=== PATIENT | male | born 1950 | race Caucasian/White ===

== ENCOUNTER 2019-02-13 21:37 | Inpatient (IN) | payer OTHER, MEDICARE ==
[~2019-02-13] VITALS: Ht 175.3 cm; Wt 98.0 kg
[~2019-02-13 21:37] MED LIST: ALBU90OI INH; ALBU90OI6 INH; AZIT250 PO; Baclofen20 MG PO; CETI5 PO; DOC250 PO; HYDACE5 PO; Hair, Skin & N1 EACH PO; MELO7.5 PO; PRAZ1 PO; PRED20 PO; Prednisone20 MG PO; VENL150ER PO; Zithromax250 MG PO
[2019-02-13 21:57] LABS: BASOPHILS PERCENT AUTO 2 % (0-2); EOSINOPHILS ABSOLUTE AUTO 1.08 K/mm3 (0.00-0.68); EOSINOPHILS PERCENT AUTO 8 % (0-6); Hematocrit 50.8 % (37.0-53.0); Hemoglobin 17.4 g/dL (13.5-17.5); IMMATURE GRAN ABSOLUTE AUTO 0.04 K/mm3 (0.00-0.10); IMMATURE GRAN PERCENT AUTO 0 % (0-1); LYMPHOCYTES ABSOLUTE AUTO 2.52 K/mm3 (0.84-5.20); LYMPHOCYTES PERCENT AUTO 19 % (21-46); MONOCYTES ABSOLUTE AUTO 1.51 K/mm3 (0.16-1.47); MONOCYTES PERCENT AUTO 11 % (4-13); Mean Corpuscular HGB 30.2 pg (26.0-34.0); Mean Corpuscular HGB Conc 34.3 g/dL (31.5-36.5); Mean Corpuscular Volume 88 fL (80-100); Mean Platelet Volume 9.3 fL (9.1-12.4); NEUTROPHILS ABSOLUTE AUTO 8.03 K/mm3 (1.96-9.15); NEUTROPHILS PERCENT AUTO 60 % (41-73); Platelet Count 301 K/mm3 (150-400); RDW Coefficient Variation 12.7 % (11.7-14.2); RDW Standard Deviation 41.5 fL (35.1-46.3); Red Blood Cell Count 5.77 M/mm3 (4.30-5.90); White Blood Cell Count 13.38 K/mm3 (4.00-11.30)
[2019-02-13 22:04] LABS: PCO2 Arterial 36.3 mmHg (35-45); PO2 Arterial 58.9 mmHg (80-100); pH Blood Arterial 7.45 (7.35-7.45)
[2019-02-13 22:19] LABS: Alanine Aminotransfer (ALT/SGP 49 U/L (12-78); Albumin, Blood 4.2 g/dL (3.4-5.0); Albumin/Globulin Ratio 1.2 (0.8-1.8); Alk Phos 138 U/L (50-136); Anion Gap 10 mmol/L (6-16); Aspartate Aminotrans (AST/SGOT 27 U/L (12-37); Bilirubin, Total 0.6 mg/dL (0.1-1.0); Blood Urea Nitrogen 20 mg/dL (8-24); Bun/Creatinine Ratio 19.6 (12.0-20.0); CO2, Blood 24 mmol/L (21-32); Chloride, Blood 103 mmol/L (98-108); Creatinine, Blood 1.02 mg/dL (0.60-1.20); Globulin, Blood 3.6 g/dL (2.2-4.0); Glomerular Filtration Rate >60 (60-); Glucose, Blood 151 mg/dL (70-99); Potassium, Blood 3.6 mmol/L (3.5-5.5); Sodium, Blood 137 mmol/L (136-145); Total Protein, Blood 7.8 g/dL (6.4-8.2); Troponin I <0.015 ng/mL (0.000-0.040)
--- NOTE | 2019-02-14 01:04 | NUR ---
PCU ADMIT PT BROUGHT TO PCU RM 13 FROM ER BY ABIMAEL @ APPROX 0020. PT A&O X4, ABLE TO AMBULATE FROM [facility] TO PCU BED INDEPENDENTLY. PT TRANSFERRED FROM ER TO PCU ON 6L NC, PLACED ON BIPAP 14/7, 30% BY RT UPON ARRIVAL TO UNIT. LUNG SOUNDS W/ WHEEZE T/O. SPO2 > 90%. PT REPORTS BEING DEAF IN L EAR. MONITOR SHOWS ST, HR 100-120's. WILL CONTINUE TO MONITOR AND PROVIDE CARE.
[2019-02-14 03:29] LABS: Hematocrit 49.8 % (37.0-53.0); Hemoglobin 17.1 g/dL (13.5-17.5); Mean Corpuscular HGB Conc 34.3 g/dL (31.5-36.5); Mean Corpuscular Volume 87 fL (80-100); Mean Platelet Volume 8.9 fL (9.1-12.4); Platelet Count 295 K/mm3 (150-400); RDW Coefficient Variation 12.9 % (11.7-14.2); RDW Standard Deviation 41.1 fL (35.1-46.3); White Blood Cell Count 13.28 K/mm3 (4.00-11.30)
[2019-02-14 03:49] LABS: Alanine Aminotransfer (ALT/SGP 44 U/L (12-78); Albumin/Globulin Ratio 1.1 (0.8-1.8); Alk Phos 115 U/L (50-136); Anion Gap 8 mmol/L (6-16); Aspartate Aminotrans (AST/SGOT 24 U/L (12-37); Bilirubin, Total 0.4 mg/dL (0.1-1.0); Blood Urea Nitrogen 21 mg/dL (8-24); Bun/Creatinine Ratio 19.3 (12.0-20.0); CO2, Blood 26 mmol/L (21-32); Calcium, Blood 9.2 mg/dL (8.5-10.1); Chloride, Blood 102 mmol/L (98-108); Creatinine, Blood 1.09 mg/dL (0.60-1.20); Globulin, Blood 3.6 g/dL (2.2-4.0); Glomerular Filtration Rate >60 (60-); Glucose, Blood 201 mg/dL (70-99); Potassium, Blood 3.6 mmol/L (3.5-5.5); Sodium, Blood 136 mmol/L (136-145); Total Protein, Blood 7.6 g/dL (6.4-8.2)
--- NOTE | 2019-02-14 05:15 | NUR ---
SHIFT SUMMARY PT A&O X4. VSS. MONITOR SHOWS SR-ST, HR 90-120's. WHEEZE NOTED T/O LUNGS. SPO2 > 90% ON BIPAP 14/, 30%. NO EVENTS/CHANGES THIS SHIFT. PT SLEEPING MAJORITY OF TIME SINCE ARRIVAL TO UNIT. WILL CONTINUE TO MONITOR AND PROVIDE CARE.
--- NOTE | 2019-02-14 07:39 | NUR ---
pt laying in bed awake a/ox3, pleasant and cooperative with care, follows commands well, lungs are very wheezy t/o, resp even and unlabored, no cough noted, hrr, tele in place running st in low 100's, no edema noted, ppp+2, cap refill <3sec, vs stable, afebrile, iv site is clear and patent, btx4, abd flat soft nontender, voids without diff, skin c/w/d, maew, did get up to br, did fine initially but work of breathing was increased, placed back on bipap when he returned to bed, arturo, call light in reach.
[2019-02-14 09:03] LABS: Adenovirus Not Detected (NOT DETECT); Coronavirus 229E Not Detected (NOT DETECT); Coronavirus HKU1 Not Detected (NOT DETECT); Coronavirus NL63 Not Detected (NOT DETECT); Coronavirus OC43 Not Detected (NOT DETECT); Human Metapneumovirus Not Detected (NOT DETECT); Human Rhinovirus/Enterovirus Detected (NOT DETECT)
[2019-02-14 09:04] LABS: Bordetella pertussis Not Detected (NOT DETECT); Chlamydophila pneumoniae Not Detected (NOT DETECT); Influenza A Not Detected (NOT DETECT); Influenza A/2009-H1 Not Detected (NOT DETECT); Influenza A/H1 Not Detected (NOT DETECT); Influenza A/H3 Not Detected (NOT DETECT); Influenza B Not Detected (NOT DETECT); Mycoplasma pneumoniae Not Detected (NOT DETECT); Parainfluenza Virus 1 Not Detected (NOT DETECT); Parainfluenza Virus 2 Not Detected (NOT DETECT); Parainfluenza Virus 3 Not Detected (NOT DETECT); Parainfluenza Virus 4 Not Detected (NOT DETECT); Respiratory Syncytial Virus Not Detected (NOT DETECT)
--- NOTE | 2019-02-14 12:30 | NUR ---
ASSUMED CARE OF PATIENT AT 1200. A&O X 4, JOE. COARSE EXPIRATORY WHEEZES IN BILATERAL UPPER LOBES, VERY DIM WITH WHEEZES IN BILATERAL BASES. ALTERNATING BETWEEN BIPAP AND 2 L/MIN NC, ENGINE LATHE TENDER COUGH. O2 SATS 91-95%. CAN CHANGE POSITIONS INDEPENDENTLY IN BED. FAMILY AT BESIDE.
--- NOTE | 2019-02-14 15:42 | NUR ---
DR TREVIÑO AT BEDSIDE FOR CONSULATION. PT HAD JUST GOTTEN OUT OF SHOWER, WAS SEVERELY DYSPNEIC AND AUDIBLY WHEEZING. HAD BEEN WEARING OXYGEN AT 2 L/MIN NC WHILE SHOWERING, INCREASED TO 4 L/MIN NC AT CONCLUSION OF SHOWER. DR. TREVIÑO EXAMINED PT, ORDERED ABG FOR 1630 TODAY.
[2019-02-14 16:39] LABS: PCO2 Arterial 38.9 mmHg (35-45); PO2 Arterial 67.6 mmHg (80-100)
--- NOTE | 2019-02-14 18:17 | NUR ---
SHIFT SUMMARY: TOLERATING PO INTAKE. NO APRECABLE CHANGE IN BREATH SOUNDS OR OXYGENATION AT REST. PULMONARY CONSULT COMPLETED. STARTED ON LOW SS INSULIN AND CBG AC/HS. AND SON VISITED TODAY. IN GOOD SPIRITS. DENIES PAIN. USING URINAL INDEPENDENTLY.
--- NOTE | 2019-02-14 20:00 | NUR ---
CARE ASSUMPTION PT A&O X4. VSS. LUNG SOUNDS W/ WHEEZE T/O. SPO2 > 92% ON BIPAP 09/29, 25%. MONITOR SHOWS ST, HR 110's. WILL CONTINUE TO MONITOR AND PROVIDE CARE.
--- NOTE | 2019-02-14 22:04 | NUR ---
PT REQUEST TYLENOL PT REQUESTING TYLENOL FOR "BACK HURTING FROM LAYING IN BED AND NOT MOVING." PT W/ PREVIOUSLY LISTED ACETAMINOPHEN ALLERGY THAT PT CONFIRMED AT TIME OF ADMIT. PT DENYING ALLERGY AT THIS TIME, STATING "OH NO! I DON'T HAVE AN ALLERGY TO IT. TYLENOL IS THE ONLY THING THAT EVER HAS HELPED MY PAIN." CALL TO MD LIM BY PEARL HAND W/ NEW ORDER FOR PRN TYLENOL, SEE EMAR.
[2019-02-15 03:43] LABS: BASOPHILS ABSOLUTE AUTO 0.05 K/mm3 (0.00-0.23); BASOPHILS PERCENT AUTO 0 % (0-2); EOSINOPHILS ABSOLUTE AUTO 0.01 K/mm3 (0.00-0.68); EOSINOPHILS PERCENT AUTO 0 % (0-6); Hematocrit 46.6 % (37.0-53.0); Hemoglobin 15.8 g/dL (13.5-17.5); IMMATURE GRAN ABSOLUTE AUTO 0.29 K/mm3 (0.00-0.10); IMMATURE GRAN PERCENT AUTO 1 % (0-1); LYMPHOCYTES ABSOLUTE AUTO 1.16 K/mm3 (0.84-5.20); LYMPHOCYTES PERCENT AUTO 5 % (21-46); MONOCYTES ABSOLUTE AUTO 0.81 K/mm3 (0.16-1.47); MONOCYTES PERCENT AUTO 3 % (4-13); Mean Corpuscular HGB 29.8 pg (26.0-34.0); Mean Corpuscular HGB Conc 33.9 g/dL (31.5-36.5); Mean Corpuscular Volume 88 fL (80-100); Mean Platelet Volume 9.1 fL (9.1-12.4); NEUTROPHILS ABSOLUTE AUTO 23.02 K/mm3 (1.96-9.15); NEUTROPHILS PERCENT AUTO 91 % (41-73); Platelet Count 320 K/mm3 (150-400); RDW Coefficient Variation 12.9 % (11.7-14.2); RDW Standard Deviation 41.9 fL (35.1-46.3); Red Blood Cell Count 5.31 M/mm3 (4.30-5.90); White Blood Cell Count 25.34 K/mm3 (4.00-11.30)
[2019-02-15 04:08] LABS: Anion Gap 7 mmol/L (6-16); Blood Urea Nitrogen 21 mg/dL (8-24); Bun/Creatinine Ratio 22.7 (12.0-20.0); CO2, Blood 26 mmol/L (21-32); Calcium, Blood 8.9 mg/dL (8.5-10.1); Chloride, Blood 102 mmol/L (98-108); Creatinine, Blood 0.93 mg/dL (0.60-1.20); Glomerular Filtration Rate >60 (60-); Glucose, Blood 168 mg/dL (70-99); Phosphorus, Blood 2.6 mg/dL (2.5-4.9); Potassium, Blood 3.7 mmol/L (3.5-5.5); Sodium, Blood 135 mmol/L (136-145)
--- NOTE | 2019-02-15 06:10 | NUR ---
SOB PT AMBULATED TO BATHROOM AND BACK W/ RESPIRATIONS & SPO2 WNL. WITHIN 5 MINUTES AFTER SETTLING BACK IN BED AND WEARING BIPAP, PT PANICKING, STATING "I CAN'T GET AIR." SPO2 NOTED TO BE 94% ON BIPAP. RR RAPID AND LABORED. PT ENCOURAGED TO DEEP BREATHE. RT CALLED TO ROOM W/ BREATHING TX PROVIDED VIA BIPAP. PT TOLERATED WELL. WILL CONTINUE TO MONITOR AND PROVIDE CARE.
--- NOTE | 2019-02-15 06:23 | NUR ---
SHIFT SUMMARY PT A&O X4. VSS. LUNG SOUNDS W/ WHEEZE T/O. SPO2 > 92% ON BIPAP 12/6 W/ 2L BLEED IN. MONITOR SHOWS ST, HR 110's. PT UP TO BATHROOM X2 THIS SHIFT, TOLERATING AMBULATION/BREATHING WELL FIRST TIME UP THIS SHIFT. 2ND TIME UP, HOURS LATER, PT EXTREMELY SOB AFTER AMBULATION, SEE PREVIOUS NOTE. PT BREATHING NOW RECOVERED, STILL WEARING BIPAP. URINAL AT BEDSIDE. WILL CONTINUE TO MONITOR AND PROVIDE CARE UNTIL REPORT OFF TO DAY SHIFT RN.
--- NOTE | 2019-02-15 11:22 | NUR ---
PROVIDER VISIT DR. TREVIÑO AT BEDSIDE FOR ASSESSMENT
--- NOTE | 2019-02-15 11:50 | NUR ---
CARE ASSUMED REPORT RECEIVED, CARE ASSUMED FROM RUEL AHMADI AT 0700. ON ROUNDING, PT LYING IN BED WITH BIPAP IN PLACE. PT CHANGED TO 2 LPM NASAL CANNULA. VITALS STABLE. PT EXPLAINS HE FEELS SHORT OF BREATH, BUT 02 SAT 90'S. RR 20. PT EXPRESSES APPREHENSION REGARDING GETTING UP AND AROUND THE ROOM TO USE THE RESTROOM, HE EXPLAINS THAT HE FEELS MUCH MORE SHORT OF BREATH WHEN HE DOES THIS. PT ENCOURAGED TO USE URINAL OR CALL FOR NURSE STANDBY. SINCE THEN, PT HAS EATEN BREAKFAST WITH NO DIFFICULTY AND TAKEN A NAP. PT HAS HAD NO FURTHER EPISODES OF SEVERE SHORTNESS OF BREATH. PT CALLING APPROPRIATELY FOR NEEDS.
--- NOTE | 2019-02-15 19:20 | NUR ---
REPORT TO RUEL AHMADI TO ASSUME CARE
--- NOTE | 2019-02-15 19:25 | NUR ---
SUMMARY VITALS STABLE THROUGHOUT SHIFT. PT HAS HAD MULTIPLE VISITORS ALL DAY AND HAS BEEN ALERT, TALKATIVE. WHEN VISITORS NOT AT BEDSIDE, PT BUSY READING OR WATCHING TELEVISION. PT HAS NOT REQUIRED BIPAP TODAY, MAINTAINING OXYGEN SATURATION IN 90'S ON 2 LPM NASAL CANNULA. BP/HR STABLE. PT AFEBRILE. PT HAS USED URINAL ENTIRE DAY HE FEELS HE WILL BE TOO SHORT OF BREATH GETTING OUT OF BED. PT CONTINUES TO BE AUDIBLY WHEEZY AT REST BUT RR LOW 20'S. PT DOES STATE, "I NEED TO NOT TALK SO MUCH TO MY VISITORS BECAUSE I GET TOO SHORT OF BREATH." PT HAS HAD GOOD APPETITE. BLOOD SUGARS MANAGED WITH SLIDING SCALE. ADEQUATE URINE OUTPUT THROUGHOUT DAY.
--- NOTE | 2019-02-15 20:04 | NUR ---
CARE ASSUMPTION PT A&O X4. VSS. LUNG SOUNDS W/ WHEEZE T/O. SPO2 > 92% ON 1L NC. MONITOR SHOWS SR-ST, 90-110. PT SITTING UP IN BED USING PERSONAL LAPTOP. PT REPORTS SOB W/ VISITORS TODAY AND STATES HAVING TOLD VISITORS HE NEEDS TO REST FOR THE REMAINDER OF THE NIGHT. WILL CONTINUE TO MONITOR AND PROVIDE CARE.
[2019-02-16 04:16] LABS: BASOPHILS ABSOLUTE AUTO 0.03 K/mm3 (0.00-0.23); BASOPHILS PERCENT AUTO 0 % (0-2); EOSINOPHILS ABSOLUTE AUTO 0.06 K/mm3 (0.00-0.68); EOSINOPHILS PERCENT AUTO 0 % (0-6); Hemoglobin 15.9 g/dL (13.5-17.5); IMMATURE GRAN ABSOLUTE AUTO 0.21 K/mm3 (0.00-0.10); IMMATURE GRAN PERCENT AUTO 1 % (0-1); LYMPHOCYTES ABSOLUTE AUTO 0.92 K/mm3 (0.84-5.20); LYMPHOCYTES PERCENT AUTO 4 % (21-46); MONOCYTES ABSOLUTE AUTO 0.81 K/mm3 (0.16-1.47); MONOCYTES PERCENT AUTO 4 % (4-13); Mean Corpuscular HGB 29.6 pg (26.0-34.0); Mean Corpuscular HGB Conc 33.8 g/dL (31.5-36.5); Mean Corpuscular Volume 88 fL (80-100); Mean Platelet Volume 9.2 fL (9.1-12.4); NEUTROPHILS ABSOLUTE AUTO 19.98 K/mm3 (1.96-9.15); NEUTROPHILS PERCENT AUTO 91 % (41-73); Platelet Count 318 K/mm3 (150-400); RDW Coefficient Variation 12.9 % (11.7-14.2); RDW Standard Deviation 41.7 fL (35.1-46.3); Red Blood Cell Count 5.37 M/mm3 (4.30-5.90); White Blood Cell Count 22.01 K/mm3 (4.00-11.30)
[2019-02-16 04:34] LABS: Albumin, Blood 3.8 g/dL (3.4-5.0); Anion Gap 9 mmol/L (6-16); Blood Urea Nitrogen 19 mg/dL (8-24); Bun/Creatinine Ratio 21.2 (12.0-20.0); CO2, Blood 25 mmol/L (21-32); Calcium, Blood 8.7 mg/dL (8.5-10.1); Chloride, Blood 102 mmol/L (98-108); Glomerular Filtration Rate >60 (60-); Glucose, Blood 172 mg/dL (70-99); Phosphorus, Blood 3.5 mg/dL (2.5-4.9); Potassium, Blood 3.9 mmol/L (3.5-5.5); Sodium, Blood 136 mmol/L (136-145)
--- NOTE | 2019-02-16 06:07 | NUR ---
SHIFT SUMMARY PT A&O X4. VSS. MONITOR SHOWS SR-ST, HR 70-100. LUNG SOUNDS W/ WHEEZE T/O. SPO2 > 90% ON 1L NC OR BIPAP 16/8 W/ 2L BLEED IN THIS SHIFT. NO SOB THIS SHIFT PT REMAINING IN BED DURATION OF SHIFT, USING BEDSIDE URINAL NEEDED. WILL CONTINUE TO MONITOR AND PROVIDE CARE UNTIL REPORT OFF TO DAY SHIFT RN.
--- NOTE | 2019-02-16 09:23 | NUR ---
PT WITH PROLONGED EXPIRATORY WHEEZES AND USE OF ACCESSORY MUSCLES, PT STS THAT HE IS GETTING UP TO USE THE BATHROOM PT IS ADVISED THAT HE IS SHORT OF BREATH PT REFUSES TO COMPLY WITH EDUCATION AND DEMANDS THAT HE BE LET OUT OF BED DESPITE ALL EDUCATION AND ENCOURAGING TO COMPLY WITH SAFE PRACTICIES. PT GETSPUT OF BED DESPITEANY EDUCATION. PT RETURNS TO BED DIAPHORETIC STS THAT "IT'S NOT SWEAT" SPO2 REMAINS AT 93%, PT DID HOWEVER LEAVE O2 IN PLACE DURING HIS TRIPT O BATHROOM
--- NOTE | 2019-02-16 12:03 | NUR ---
Advance Directive education/Spiritual care visit conducted. Patient showed great interest in the advance directive. I covered the importance, content and filing process of the advance directive. Patient received the booklet and stated that he would complete it when he is able to sit down with his and go over it. 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 Patient also shared about the deep grief of having 2 of his sons . Patient talks about his medical issues and how they remind him that it is only God who is in control. I listen empathically, reinforce helpful attitudes and practices, and provide spiritual guidance, grief support and prayer. Patient responds well and shows evidence of restored david. Patient voices appreciation for the visit. I will continue to remain available to patient and family.
--- NOTE | 2019-02-16 16:24 | NUR ---
SHIFT SUMMARY PCU TRANSFER THIS AFTERNOON. PATIENT SETTLED INTO ROOM. DENIES PAIN, NAUSEA, AND SHORTNESS OF BREATH. PATIENT VERY SHORT OF BREATH WITH ACTIVITY. PATIETN AMBULATES SBA TO BATHROOM BUT DUE TO SEVERE DYSPNIA IS ENCOURAGED TO MAINTAIN BEDREST AND USE URINAL AT BEDSIDE. CALL LIGHT IN REACH.
--- NOTE | 2019-02-17 05:33 | NUR ---
DRUG AND ALCOHOL COUNSELLOR SUMMARY PT SLEPT WELL THROUGHOUT NIGHT. A/O X4. DENIES PAIN, NAUSEA, DIZZINIESS. EXP WHEEZE HEARD IN ALL 4 LOBES OF LUNG. SOB WITH MINIMAL EXERTION AND OCCASTIONAL NON-PRODUCTIVE COUGH. PT HAS RECIVED FEW BREATHING TREATMENTS AT NIGHT. CURRENTLY ON 2 L NASAL CANNULA SATING MID 90'S. USES BEDSIDE URINAL APPROPRIATELY. BED IN LOWEST POSITION, CALL LIGHT WIHTIN REACH. NO ACUTE CHANGES.
[2019-02-17 05:37] LABS: BASOPHILS ABSOLUTE AUTO 0.02 K/mm3 (0.00-0.23); BASOPHILS PERCENT AUTO 0 % (0-2); EOSINOPHILS ABSOLUTE AUTO 0.01 K/mm3 (0.00-0.68); EOSINOPHILS PERCENT AUTO 0 % (0-6); Hematocrit 49.9 % (37.0-53.0); Hemoglobin 16.6 g/dL (13.5-17.5); IMMATURE GRAN ABSOLUTE AUTO 0.18 K/mm3 (0.00-0.10); IMMATURE GRAN PERCENT AUTO 1 % (0-1); LYMPHOCYTES PERCENT AUTO 8 % (21-46); MONOCYTES ABSOLUTE AUTO 0.89 K/mm3 (0.16-1.47); MONOCYTES PERCENT AUTO 6 % (4-13); Mean Corpuscular HGB 29.6 pg (26.0-34.0); Mean Corpuscular HGB Conc 33.3 g/dL (31.5-36.5); Mean Corpuscular Volume 89 fL (80-100); Mean Platelet Volume 9.2 fL (9.1-12.4); NEUTROPHILS ABSOLUTE AUTO 13.52 K/mm3 (1.96-9.15); NEUTROPHILS PERCENT AUTO 86 % (41-73); Platelet Count 321 K/mm3 (150-400); RDW Standard Deviation 42.3 fL (35.1-46.3); Red Blood Cell Count 5.61 M/mm3 (4.30-5.90); White Blood Cell Count 15.82 K/mm3 (4.00-11.30)
[2019-02-17 06:20] LABS: Albumin, Blood 3.7 g/dL (3.4-5.0); Anion Gap 7 mmol/L (6-16); Blood Urea Nitrogen 21 mg/dL (8-24); Bun/Creatinine Ratio 21.7 (12.0-20.0); CO2, Blood 27 mmol/L (21-32); Calcium, Blood 8.7 mg/dL (8.5-10.1); Chloride, Blood 104 mmol/L (98-108); Creatinine, Blood 0.97 mg/dL (0.60-1.20); Glomerular Filtration Rate >60 (60-); Glucose, Blood 125 mg/dL (70-99); Phosphorus, Blood 3.3 mg/dL (2.5-4.9); Potassium, Blood 4.2 mmol/L (3.5-5.5); Sodium, Blood 138 mmol/L (136-145)
--- NOTE | 2019-02-17 14:48 | NUR ---
AWARE BLOOD PERSSURE RUNNING HIGH SINCE ADMIT. ON MINIPRESS. WILL LOOK AT CHART.
--- NOTE | 2019-02-17 17:06 | NUR ---
ALERT. ORIENTED. EXERTIONAL DYSPNEA. ON OXYGEN AND BASELINE IS NO OXYGEN. AUDITORY COARSE EXPIRATORY WHEEZES T/O. IV X 2 PATENT. DENIES; PAIN OR NAUSEA. SPEAKS IN COMPLETE SENTENCES WHEN LYING IN BED. MEDS FOR COUGHING GIVEN WITH GOOD RESULTS. BED IN LOW POSITION. BLOOD SUGARS HAVE BEEN GOOD TODAY WITHOUT REQUIRING COVERAGE. GOOD APPETITE. [facility].
[2019-02-18 05:14] LABS: BASOPHILS ABSOLUTE AUTO 0.03 K/mm3 (0.00-0.23); BASOPHILS PERCENT AUTO 0 % (0-2); EOSINOPHILS ABSOLUTE AUTO 0.02 K/mm3 (0.00-0.68); EOSINOPHILS PERCENT AUTO 0 % (0-6); Hematocrit 47.7 % (37.0-53.0); Hemoglobin 15.9 g/dL (13.5-17.5); IMMATURE GRAN ABSOLUTE AUTO 0.18 K/mm3 (0.00-0.10); IMMATURE GRAN PERCENT AUTO 1 % (0-1); LYMPHOCYTES ABSOLUTE AUTO 1.21 K/mm3 (0.84-5.20); LYMPHOCYTES PERCENT AUTO 9 % (21-46); MONOCYTES ABSOLUTE AUTO 0.75 K/mm3 (0.16-1.47); MONOCYTES PERCENT AUTO 6 % (4-13); Mean Corpuscular HGB 29.6 pg (26.0-34.0); Mean Corpuscular HGB Conc 33.3 g/dL (31.5-36.5); Mean Corpuscular Volume 89 fL (80-100); Mean Platelet Volume 9.1 fL (9.1-12.4); NEUTROPHILS ABSOLUTE AUTO 11.06 K/mm3 (1.96-9.15); NEUTROPHILS PERCENT AUTO 83 % (41-73); Platelet Count 327 K/mm3 (150-400); RDW Coefficient Variation 12.6 % (11.7-14.2); RDW Standard Deviation 41.2 fL (35.1-46.3); Red Blood Cell Count 5.38 M/mm3 (4.30-5.90); White Blood Cell Count 13.25 K/mm3 (4.00-11.30)
[2019-02-18 05:35] LABS: Albumin, Blood 3.4 g/dL (3.4-5.0); Anion Gap 8 mmol/L (6-16); Blood Urea Nitrogen 20 mg/dL (8-24); Bun/Creatinine Ratio 22.4 (12.0-20.0); CO2, Blood 26 mmol/L (21-32); Calcium, Blood 8.5 mg/dL (8.5-10.1); Chloride, Blood 105 mmol/L (98-108); Creatinine, Blood 0.89 mg/dL (0.60-1.20); Glomerular Filtration Rate >60 (60-); Glucose, Blood 127 mg/dL (70-99); Phosphorus, Blood 3.3 mg/dL (2.5-4.9); Sodium, Blood 139 mmol/L (136-145)
--- NOTE | 2019-02-18 05:40 | NUR ---
PT A/O X4, PLEASANT AND COOPERATIVE. CURRENTLY ON 2 L O2. PROLONGED EXP. WHEEZES HEARD THROUGHOUT LUNGS. CALLS APPROPRIATELY. VSS, NO ACUTE CHANGES.
[2019-02-18] MEDS ORDERED: ALBU2.5V5 INH (10:15)
[2019-02-18] MEDS ORDERED: ROBITUSSIN COU237 ML PO (10:19)
[2019-02-18] MEDS ORDERED: GUAI600T33 PO (10:20)
[2019-02-18] MEDS ORDERED: ALBU3IS INH (10:21)
[2019-02-18] MEDS ORDERED: Nicoderm Cq1 EAC1 TOP (10:21)
[2019-02-18] MEDS ORDERED: Prednisone10 MG PO (10:22)
[2019-02-18] MEDS ORDERED: FLUT1DIS5 INH (10:28)
--- NOTE | 2019-02-18 12:23 | NUR ---
REVIEW D'C W/PATIENT AND . AWARE TO NAIL ARTIST MEDS AT [facility]. AWARE COORDINATOR WILL CALL WITH F/U. ANSWER ALL QUESTIONS. REVIEW MEDS AND HOW TO TAKE. IN W/C TO POV
== END 2019-02-18 12:22 | disposition home or self-care (01) | DRG 189 ==
LOC: ER 21:37 → PCU 21:38 → MEDS 02-14 15:03 → PCU 02-14 15:03 → MEDS 02-16 15:05 → ENPENDDIS 02-18 11:27 → MEDS 02-18 12:22
PROVIDERS: Family Medicine; Internal Medicine Pulmonary Disease; Physician Assistant; ADMIT Internal Medicine
PROC: 5A09357 Assistance with Respiratory Ventilation, Less than 24 Consecutive Hours, Continuous Positive Airway Pressure (ICD-10-PCS; principal; 2019-02-14)
DX: J96.01 Acute respiratory failure with hypoxia (principal); J44.1 Chronic obstructive pulmonary disease with (acute) exacerbation; J06.9 Acute upper respiratory infection, unspecified; B97.10 Unspecified enterovirus as the cause of diseases classified elsewhere; B97.89 Other viral agents as the cause of diseases classified elsewhere; E11.9 Type 2 diabetes mellitus without complications; F17.210 Nicotine dependence, cigarettes, uncomplicated; T38.0X5A Adverse effect of glucocorticoids and synthetic analogues, initial encounter; Z86.718 Personal history of other venous thrombosis and embolism; Z88.6 Allergy status to analgesic agent; Z88.5 Allergy status to narcotic agent; Z79.1 Long term (current) use of non-steroidal anti-inflammatories (NSAID)
CPT/HCPCS: 0099U; 36415; 36600; 71045; 71046; 80053; 80069; 82803; 82947; 84484; 85025; 85027; 93005; 93010; 94640; 94660; 94760; 94761; 94762; 96372; 96374; 96376; 99285-25; A9270; G0378; J1650; J1815; J2920; J2930

== ENCOUNTER 2019-06-20 21:01 | Inpatient (IN) | payer OTHER, MEDICARE ==
[~2019-06-20] VITALS: Ht 175.3 cm; Wt 102.6 kg
[~2019-06-20 21:01] MED LIST changes: +ALBU2.5V5 INH; +ALBU3IS INH; +FLUT1DIS5 INH; +GUAI600T33 PO; +Nicoderm Cq1 EAC1 TOP; +PRED5 PO; +ROBITUSSIN COU237 ML PO
[2019-06-20 21:39] LABS: BASOPHILS PERCENT AUTO 2 % (0-2); EOSINOPHILS ABSOLUTE AUTO 0.85 K/mm3 (0.00-0.68); EOSINOPHILS PERCENT AUTO 9 % (0-6); Hematocrit 44.4 % (37.0-53.0); IMMATURE GRAN ABSOLUTE AUTO 0.05 K/mm3 (0.00-0.10); IMMATURE GRAN PERCENT AUTO 1 % (0-1); LYMPHOCYTES ABSOLUTE AUTO 2.11 K/mm3 (0.84-5.20); LYMPHOCYTES PERCENT AUTO 22 % (21-46); MONOCYTES ABSOLUTE AUTO 0.87 K/mm3 (0.16-1.47); MONOCYTES PERCENT AUTO 9 % (4-13); Mean Corpuscular HGB 29.8 pg (26.0-34.0); Mean Corpuscular HGB Conc 33.8 g/dL (31.5-36.5); Mean Corpuscular Volume 88 fL (80-100); Mean Platelet Volume 8.9 fL (9.1-12.4); NEUTROPHILS PERCENT AUTO 58 % (41-73); Platelet Count 325 K/mm3 (150-400); RDW Coefficient Variation 13.1 % (11.7-14.2); RDW Standard Deviation 42.5 fL (35.1-46.3); Red Blood Cell Count 5.03 M/mm3 (4.30-5.90); White Blood Cell Count 9.78 K/mm3 (4.00-11.30)
[2019-06-20 21:53] LABS: Alanine Aminotransfer (ALT/SGP 38 U/L (12-78); Albumin, Blood 3.8 g/dL (3.4-5.0); Albumin/Globulin Ratio 1.1 (0.8-1.8); Alk Phos 100 U/L (50-136); Anion Gap 7 mmol/L (6-16); Aspartate Aminotrans (AST/SGOT 23 U/L (12-37); Bilirubin, Total 0.4 mg/dL (0.1-1.0); Blood Urea Nitrogen 14 mg/dL (8-24); Bun/Creatinine Ratio 13.7 (12.0-20.0); CO2, Blood 26 mmol/L (21-32); Calcium, Blood 8.4 mg/dL (8.5-10.1); Chloride, Blood 108 mmol/L (98-108); Creatinine, Blood 1.02 mg/dL (0.60-1.20); Globulin, Blood 3.4 g/dL (2.2-4.0); Glomerular Filtration Rate >60 (60-); Glucose, Blood 102 mg/dL (70-99); Potassium, Blood 3.7 mmol/L (3.5-5.5); Sodium, Blood 141 mmol/L (136-145); Total Protein, Blood 7.2 g/dL (6.4-8.2); Troponin I <0.015 ng/mL (0.000-0.040)
[2019-06-20 22:14] LABS: Base Excess Venous 3.1 mmol/L; Bicarbonate Venous 26.3 mmol/L (24.0-30.0); PCO2 Venous 47.2 mmHg (38-42); PO2 Venous 57.4 mmHg (38-42); pH Blood Venous 7.38 (7.34-7.37)
--- NOTE | 2019-06-21 01:28 | NUR ---
ADMISSION: PATIENT IS RECIEVED FROM ER VIA STRETCHER ABLE TO AMBULATE TO BATHROOM WITH STEADY GAIT TO VOID. VS JESSICA STABLE NO COMPLAINTS OF PAIN OR DISCOMFORT. PATIENT IS ODIENTED TO ROOM AND CALL BARRERA.
--- NOTE | 2019-06-21 06:41 | NUR ---
SHIFT SUMMARY: PATIENT IS A&OX4, VS ARE STABLE, MAINTAINS 02 SATS IN MID 90'S ON CPAP WITH 02 BLEED IN AND ROOM AIR WHEN AWAKE. USING THE URINAL IN BED, DO TO SOB WITH ACTIVITY. LUNGS HAVE INSPIRATORY AND EXPIRATORY WHEEZES.
--- NOTE | 2019-06-21 15:57 | NUR ---
SHIFT SUMMARY PT IS A/O X 4 WITH NO C/O PAIN OR DISCOMFORT. HE IS VERY PLEASANT AND THANKFUL FOR HIS CARE HERE. HE REPORTS THAT HE FEELS MUCH BETTER TODAY THAN UPON HIS ARRIVAL TO THE ER LAST NIGHT. HE CONTINUES TO WORK WITH RT. HE USES THE URINAL AT THE BEDSIDE AND CALLS WHEN HE IS DONE. HE IS ABLE TO MAKE HIS NEEDS KNOWN AND CALLS FOR HELP WHEN NEEDED.
--- NOTE | 2019-06-22 04:29 | NUR ---
SHIFT SUMMARY: PT IS ALERT AND ORIENTED. PT IS CALM, FRIENDLY, AND COOPERATIVE WITH CARE. PT IS INDEPENDENT IN THE ROOM. PT REPORT SOB UPON EXERTION, O2 SATS > 90% ON ROOM AIR. PT REPORTS [place], GAVE PRN TYLENOL. PT DENIES NAUSEA AND VOMITING. PT SLEPT MUCH OF THE NIGHT. POSSIBLE DC TODAY. NO ACUTE CHANGES OR COMPLICATIONS OVERNIGHT. BED IN LOW POSITION, CALL LIGHT WITHIN REACH. WILL REPORT TO DAY NURSE.
[2019-06-22] MEDS ORDERED: Duoneb 2.5-0.5 M3 ML INH (04:41)
[2019-06-22] MEDS ORDERED: MOME220I INH (04:47)
--- NOTE | 2019-06-22 15:40 | NUR ---
SHIFT SUMMARY PT IS A/O X 4 WITH NO C/O PAIN. HE CONTINUES WITH A NON-PRODUCTIVE COUGH AND COARSE LUNG SOUNDS BUT DENIES SOB OR RESP DISTRESS. HE CONTINUES ON PREDNISONE AND ABO WITH NO ADVERSE REACTIONS. HES ON RA WITH CONTINUOUS PULSE OX MONITORING. PT IS UP AD FELIPE IN HIS ROOM AND TO THE TOILET. HE CALLS FOR HELP WHEN NEEDED AND HAS HIS CALL LIGHT IN REACH.
--- NOTE | 2019-06-22 15:47 | NUR ---
Mr. Ferrari is a personable man. He holds a deep david in a loving God, and he credits this david for keeping him strong/gounded. He spoke about the loss of two of his sons. He explained how difficult it was to watch one recieve a months worth of full medical treatment when there was no hope. He is admamant he would never want his life prolonged by heroic measures if there was no hope for meaningful recovery. He took an advanced directive packet to show to his . He states that his and his son know his wishes. Provided prayer and affirmation to good effect. I will remain available.
[2019-06-23 00:20] LABS: Anion Gap 6 mmol/L (6-16); Blood Urea Nitrogen 18 mg/dL (8-24); Bun/Creatinine Ratio 16.8 (12.0-20.0); CO2, Blood 28 mmol/L (21-32); Calcium, Blood 8.6 mg/dL (8.5-10.1); Chloride, Blood 105 mmol/L (98-108); Creatinine, Blood 1.07 mg/dL (0.60-1.20); Glomerular Filtration Rate >60 (60-); Glucose, Blood 121 mg/dL (70-99); Potassium, Blood 3.6 mmol/L (3.5-5.5); Sodium, Blood 139 mmol/L (136-145)
--- NOTE | 2019-06-23 04:24 | NUR ---
SHIFT SUMMARY A/O, ABLE TO MAKE NEEDS KNOWN. COOPERATIVE WITH CARE. CALLS AND ANSWERS QUESTIONS APPROPRIATELY. NO C/O PAIN/DISCOMFORT. INDEPENDENT IN ROOM. CONTINUES TO HAVE A DRY NON-PRODUCTIVE COUGH. REMAINS ON RA, SPO2 94%. LS REMAIN COARSE/WHEEZE T/O /c DYSPNEA UPON EXTERTION. USES CPAP WHILE AWAKE AND ALSEEP. NO ACUTE CHANGES NOTED OVERNIGHT. VSS/AFEBRILE. BED REMAINS IN LOWEST POSITION. CALL LIGHT AND BELONGINGS WITHIN REACH. WCTM. REPORT TO ONCOMING RN.
[2019-06-23] MEDS ORDERED: PRED20 PO (11:24)
[2019-06-23] MEDS ORDERED: PANT20 PO (11:24)
[2019-06-23] MEDS ORDERED: ACET500 PO (11:26)
[2019-06-23] MEDS ORDERED: AZITHROMYCIN250 MG PO (11:40)
--- NOTE | 2019-06-23 12:46 | NUR ---
Patient is sitting up in bed and alert. Patient immediately tells me about his david and many of the life lessons he has learned with life's twists and turns. Patient shares about the deaths of two of his sons (1 in 2006 and 1 in 2015) and gets teary eyed as he tells of the cause of their expirations. Patient clearly enjoys talking about God and his Journey with God. I listen empathically, reinforce helpful attitudes and practices and provide grief support and prayer. Patient responds well and shows signs of an elevated mood. I will contue to remain available to patient and family.
--- NOTE | 2019-06-23 13:25 | NUR ---
PT DISCHARGED AT 1315 AOX4. PT STATES HE IS FEELING MUCH BETTER AND IS ABLE TO AMBULATE WELL IN ROOM WITHOUT SOB INDEPENDENTLY. PT HAD ALL PAPERWORK WITH EDUCATIONAL MATERIAL REVIEWED AND SIGNED. NO DISTRESS NOTED. PT COLLECTED ALL PERSONAL BELONGINGS AND WAS ESCORTED VIA WHEELCHAIR BY THIS BULLET SLUGS INSPECTOR TO N [place]. SON OF PT CAME TO [employer].
== END 2019-06-23 13:04 | disposition home or self-care (01) | DRG 189 ==
LOC: ER 21:01 → MEDS 21:02 → ENPENDDIS 06-23 10:00 → MEDS 06-23 13:04
PROVIDERS: Internal Medicine; Physician Assistant; ADMIT Internal Medicine
DX: J96.01 Acute respiratory failure with hypoxia (principal); J44.1 Chronic obstructive pulmonary disease with (acute) exacerbation; J96.02 Acute respiratory failure with hypercapnia; F43.10 Post-traumatic stress disorder, unspecified; G47.33 Obstructive sleep apnea (adult) (pediatric); Z86.718 Personal history of other venous thrombosis and embolism; Z88.5 Allergy status to narcotic agent; Z87.891 Personal history of nicotine dependence
CPT/HCPCS: 71045; 80048; 80053; 82803; 83880; 84484; 85025; 93005; 93010; 94640; 94660; 94760; 94762; 96372; 99285-25; C9113; G0378; J1650; J7512

== ENCOUNTER 2019-08-01 22:47 | Emergency (ER) | payer OTHER, MEDICARE ==
[~2019-08-01] VITALS: Ht 175.3 cm; Wt 99.8 kg
[~2019-08-01 22:47] MED LIST changes: +ACET500 PO; +AZITHROMYCIN250 MG PO; +Duoneb 2.5-0.5 M3 ML INH; +MOME220I INH; +PANT20 PO
== END 2019-08-02 00:47 | disposition home or self-care (01) ==
LOC: ER 22:47
DX: H11.31 Conjunctival hemorrhage, right eye (principal); Z88.5 Allergy status to narcotic agent; Z88.8 Allergy status to other drugs, medicaments and biological substances; Z79.52 Long term (current) use of systemic steroids; Z79.899 Other long term (current) drug therapy; Z79.2 Long term (current) use of antibiotics; R73.03 Prediabetes; J44.9 Chronic obstructive pulmonary disease, unspecified; G47.33 Obstructive sleep apnea (adult) (pediatric); Z86.718 Personal history of other venous thrombosis and embolism; Z87.891 Personal history of nicotine dependence
CPT/HCPCS: 99282

== ENCOUNTER 2019-10-29 19:04 | Emergency (ER) | payer OTHER, MEDICARE ==
[~2019-10-29] VITALS: Ht 175.3 cm; Wt 99.8 kg
[2019-10-29 20:08] LABS: BASOPHILS ABSOLUTE AUTO 0.14 K/mm3 (0.00-0.23); BASOPHILS PERCENT AUTO 1 % (0-2); EOSINOPHILS ABSOLUTE AUTO 0.89 K/mm3 (0.00-0.68); EOSINOPHILS PERCENT AUTO 9 % (0-6); Hematocrit 46.6 % (37.0-53.0); IMMATURE GRAN ABSOLUTE AUTO 0.05 K/mm3 (0.00-0.10); IMMATURE GRAN PERCENT AUTO 1 % (0-1); LYMPHOCYTES ABSOLUTE AUTO 1.78 K/mm3 (0.84-5.20); LYMPHOCYTES PERCENT AUTO 18 % (21-46); MONOCYTES ABSOLUTE AUTO 0.79 K/mm3 (0.16-1.47); MONOCYTES PERCENT AUTO 8 % (4-13); Mean Corpuscular HGB 30.1 pg (26.0-34.0); Mean Corpuscular HGB Conc 34.3 g/dL (31.5-36.5); Mean Corpuscular Volume 88 fL (80-100); Mean Platelet Volume 8.7 fL (9.1-12.4); NEUTROPHILS ABSOLUTE AUTO 6.26 K/mm3 (1.96-9.15); NEUTROPHILS PERCENT AUTO 63 % (41-73); Platelet Count 358 K/mm3 (150-400); RDW Coefficient Variation 13.2 % (11.7-14.2); RDW Standard Deviation 42.8 fL (35.1-46.3); Red Blood Cell Count 5.32 M/mm3 (4.30-5.90); White Blood Cell Count 9.91 K/mm3 (4.00-11.30)
[2019-10-29 20:30] LABS: Alanine Aminotransfer (ALT/SGP 42 U/L (12-78); Albumin, Blood 3.9 g/dL (3.4-5.0); Albumin/Globulin Ratio 1.2 (0.8-1.8); Alk Phos 87 U/L (50-136); Anion Gap 6 mmol/L (6-16); Aspartate Aminotrans (AST/SGOT 23 U/L (12-37); Bilirubin, Total 0.6 mg/dL (0.1-1.0); Blood Urea Nitrogen 9 mg/dL (8-24); Bun/Creatinine Ratio 10.7 (12.0-20.0); CO2, Blood 26 mmol/L (21-32); Calcium, Blood 8.7 mg/dL (8.5-10.1); Chloride, Blood 107 mmol/L (98-108); Creatinine, Blood 0.84 mg/dL (0.60-1.20); Globulin, Blood 3.2 g/dL (2.2-4.0); Glomerular Filtration Rate >60 (60-); Glucose, Blood 94 mg/dL (70-99); Potassium, Blood 3.6 mmol/L (3.5-5.5); Sodium, Blood 139 mmol/L (136-145); Total Protein, Blood 7.1 g/dL (6.4-8.2); Troponin I <0.015 ng/mL (0.000-0.040)
[2019-10-30] MEDS ORDERED: CODACE30 PO (00:06)
== END 2019-10-30 00:15 | disposition home or self-care (01) ==
LOC: ER 19:04
PROVIDERS: Physician Assistant
DX: R07.89 Other chest pain (principal); J44.1 Chronic obstructive pulmonary disease with (acute) exacerbation; Z88.6 Allergy status to analgesic agent; Z88.5 Allergy status to narcotic agent; Z88.8 Allergy status to other drugs, medicaments and biological substances; Z79.899 Other long term (current) drug therapy; Z79.52 Long term (current) use of systemic steroids; Z86.718 Personal history of other venous thrombosis and embolism; Z87.891 Personal history of nicotine dependence
CPT/HCPCS: 71046; 80053; 83690; 84484; 85025; 93005; 93010; 94640; 99284-25

== ENCOUNTER 2020-03-28 12:32 | Emergency (ER) | payer OTHER, MEDICARE ==
[~2020-03-28] VITALS: Ht 175.3 cm; Wt 99.8 kg
[~2020-03-28 12:32] MED LIST changes: +CODACE30 PO
[2020-03-28 13:28] LABS: BASOPHILS ABSOLUTE AUTO 0.12 K/mm3 (0.00-0.23); BASOPHILS PERCENT AUTO 2 % (0-2); EOSINOPHILS ABSOLUTE AUTO 0.77 K/mm3 (0.00-0.68); EOSINOPHILS PERCENT AUTO 10 % (0-6); Hematocrit 46.9 % (37.0-53.0); Hemoglobin 15.6 g/dL (13.5-17.5); IMMATURE GRAN ABSOLUTE AUTO 0.04 K/mm3 (0.00-0.10); IMMATURE GRAN PERCENT AUTO 1 % (0-1); LYMPHOCYTES ABSOLUTE AUTO 1.26 K/mm3 (0.84-5.20); LYMPHOCYTES PERCENT AUTO 16 % (21-46); MONOCYTES ABSOLUTE AUTO 0.47 K/mm3 (0.16-1.47); MONOCYTES PERCENT AUTO 6 % (4-13); Mean Corpuscular HGB 28.9 pg (26.0-34.0); Mean Corpuscular HGB Conc 33.3 g/dL (31.5-36.5); Mean Corpuscular Volume 87 fL (80-100); Mean Platelet Volume 8.8 fL (9.1-12.4); NEUTROPHILS ABSOLUTE AUTO 5.44 K/mm3 (1.96-9.15); NEUTROPHILS PERCENT AUTO 67 % (41-73); Platelet Count 373 K/mm3 (150-400); RDW Standard Deviation 41.5 fL (35.1-46.3)
[2020-03-28 13:57] LABS: Alanine Aminotransfer (ALT/SGP 42 U/L (12-78); Albumin/Globulin Ratio 1.2 (0.8-1.8); Alk Phos 100 U/L (50-136); Anion Gap 6 mmol/L (6-16); Aspartate Aminotrans (AST/SGOT 21 U/L (12-37); Bilirubin, Total 0.7 mg/dL (0.1-1.0); Blood Urea Nitrogen 12 mg/dL (8-24); Bun/Creatinine Ratio 14.1 (12.0-20.0); CO2, Blood 27 mmol/L (21-32); Calcium, Blood 8.7 mg/dL (8.5-10.1); Chloride, Blood 108 mmol/L (98-108); Creatinine, Blood 0.85 mg/dL (0.60-1.20); Globulin, Blood 3.2 g/dL (2.2-4.0); Glomerular Filtration Rate >60 (60-); Glucose, Blood 118 mg/dL (70-99); Potassium, Blood 3.6 mmol/L (3.5-5.5); Sodium, Blood 141 mmol/L (136-145); Total Protein, Blood 7.2 g/dL (6.4-8.2); Troponin I <0.015 ng/mL (0.000-0.040)
[2020-03-28] MEDS ORDERED: PRED20 PO (17:30)
[2020-06-19] MEDS ORDERED: Prednisone10 MG PO (23:21)
[2020-06-20] MEDS ORDERED: AZIT250 PO (01:42)
[2020-06-20] MEDS ORDERED: MULVITA PO (01:44)
[2020-06-20] MEDS ORDERED: STRIVERDI RESPIM4 G1 INH (01:45)
[2020-06-24] MEDS ORDERED: LOSARTAN POTASS25 MG PO (13:48)
== END 2020-03-28 17:54 | disposition home or self-care (01) ==
LOC: ER 12:32
PROVIDERS: Physician Assistant
DX: J44.1 Chronic obstructive pulmonary disease with (acute) exacerbation (principal); Z79.52 Long term (current) use of systemic steroids; Z79.51 Long term (current) use of inhaled steroids; Z88.6 Allergy status to analgesic agent; Z88.5 Allergy status to narcotic agent; Z88.8 Allergy status to other drugs, medicaments and biological substances; Z86.718 Personal history of other venous thrombosis and embolism; Z87.891 Personal history of nicotine dependence
CPT/HCPCS: 36415; 71045; 80053; 84484; 85025; 93005; 93010; 94640; 96374; 99285-25; J2930

== ENCOUNTER 2020-05-12 13:24 | Emergency (ER) | payer OTHER, MEDICARE ==
[~2020-05-12] VITALS: Ht 175.3 cm; Wt 99.8 kg
[2020-05-12 13:52] LABS: BASOPHILS PERCENT AUTO 2 % (0-2); EOSINOPHILS ABSOLUTE AUTO 0.95 K/mm3 (0.00-0.68); EOSINOPHILS PERCENT AUTO 10 % (0-6); Hemoglobin 16.2 g/dL (13.5-17.5); IMMATURE GRAN ABSOLUTE AUTO 0.07 K/mm3 (0.00-0.10); IMMATURE GRAN PERCENT AUTO 1 % (0-1); LYMPHOCYTES ABSOLUTE AUTO 1.77 K/mm3 (0.84-5.20); LYMPHOCYTES PERCENT AUTO 19 % (21-46); MONOCYTES PERCENT AUTO 9 % (4-13); Mean Corpuscular HGB 29.7 pg (26.0-34.0); Mean Corpuscular HGB Conc 33.8 g/dL (31.5-36.5); Mean Corpuscular Volume 88 fL (80-100); Mean Platelet Volume 8.9 fL (9.1-12.4); NEUTROPHILS ABSOLUTE AUTO 5.48 K/mm3 (1.96-9.15); NEUTROPHILS PERCENT AUTO 59 % (41-73); Platelet Count 389 K/mm3 (150-400); RDW Coefficient Variation 13.6 % (11.7-14.2); RDW Standard Deviation 43.9 fL (35.1-46.3); Red Blood Cell Count 5.45 M/mm3 (4.30-5.90); White Blood Cell Count 9.27 K/mm3 (4.00-11.30)
[2020-05-12 13:56] LABS: PCO2 Arterial 49.5 mmHg (35-45); PO2 Arterial 103 mmHg (80-100); pH Blood Arterial 7.37 (7.35-7.45)
[2020-05-12 14:16] LABS: Alanine Aminotransfer (ALT/SGP 45 U/L (12-78); Albumin, Blood 4.2 g/dL (3.4-5.0); Albumin/Globulin Ratio 1.3 (0.8-1.8); Alk Phos 109 U/L (50-136); Anion Gap 5 mmol/L (6-16); Aspartate Aminotrans (AST/SGOT 27 U/L (12-37); Bilirubin, Total 0.5 mg/dL (0.1-1.0); Blood Urea Nitrogen 10 mg/dL (8-24); CO2, Blood 31 mmol/L (21-32); Calcium, Blood 9.1 mg/dL (8.5-10.1); Chloride, Blood 106 mmol/L (98-108); Globulin, Blood 3.3 g/dL (2.2-4.0); Glomerular Filtration Rate >60 (60-); Glucose, Blood 77 mg/dL (70-99); Potassium, Blood 3.8 mmol/L (3.5-5.5); Sodium, Blood 142 mmol/L (136-145); Total Protein, Blood 7.5 g/dL (6.4-8.2); Troponin I <0.015 ng/mL (0.000-0.040)
[2020-06-19] MEDS ORDERED: Prednisone10 MG PO (23:21)
[2020-06-20] MEDS ORDERED: AZIT250 PO (01:42)
[2020-06-20] MEDS ORDERED: MULVITA PO (01:44)
[2020-06-20] MEDS ORDERED: STRIVERDI RESPIM4 G1 INH (01:45)
[2020-06-24] MEDS ORDERED: LOSARTAN POTASS25 MG PO (13:48)
== END 2020-05-12 15:43 | disposition home or self-care (01) ==
LOC: ER 13:24
PROVIDERS: Physician Assistant
DX: J45.901 Unspecified asthma with (acute) exacerbation (principal); J44.9 Chronic obstructive pulmonary disease, unspecified; Z79.899 Other long term (current) drug therapy; Z86.718 Personal history of other venous thrombosis and embolism
CPT/HCPCS: 36415; 36600; 71045; 80053; 82803; 83880; 84484; 85025; 93005; 93010; 94644; 96365; 96375; 99285-25; J2930; J3475

== ENCOUNTER 2021-04-21 13:07 | Emergency (ER) | payer MEDICARE, OTHER ==
[~2021-04-21] VITALS: Ht 180.3 cm; Wt 108.9 kg
[~2021-04-21 13:07] MED LIST changes: +LOSARTAN POTASS25 MG PO; +MULVITA PO; +Prednisone10 MG PO; +STRIVERDI RESPIM4 G1 INH
[2021-04-21 13:46] LABS: BASOPHILS ABSOLUTE AUTO 0.11 K/mm3 (0.00-0.23); BASOPHILS PERCENT AUTO 1 % (0-2); EOSINOPHILS ABSOLUTE AUTO 0.65 K/mm3 (0.00-0.68); EOSINOPHILS PERCENT AUTO 7 % (0-6); Hematocrit 42.4 % (37.0-53.0); Hemoglobin 14.5 g/dL (13.5-17.5); IMMATURE GRAN ABSOLUTE AUTO 0.04 K/mm3 (0.00-0.10); IMMATURE GRAN PERCENT AUTO 0 % (0-1); LYMPHOCYTES ABSOLUTE AUTO 1.01 K/mm3 (0.84-5.20); LYMPHOCYTES PERCENT AUTO 10 % (21-46); MONOCYTES ABSOLUTE AUTO 0.63 K/mm3 (0.16-1.47); MONOCYTES PERCENT AUTO 7 % (4-13); Mean Corpuscular HGB 29.6 pg (26.0-34.0); Mean Corpuscular HGB Conc 34.2 g/dL (31.5-36.5); Mean Corpuscular Volume 87 fL (80-100); Mean Platelet Volume 8.9 fL (9.1-12.4); NEUTROPHILS ABSOLUTE AUTO 7.25 K/mm3 (1.96-9.15); NEUTROPHILS PERCENT AUTO 75 % (41-73); Platelet Count 390 K/mm3 (150-400); RDW Coefficient Variation 13.5 % (11.7-14.2); RDW Standard Deviation 42.3 fL (35.1-46.3); White Blood Cell Count 9.69 K/mm3 (4.00-11.30)
[2021-04-21 14:35] LABS: Alanine Aminotransfer (ALT/SGP 41 U/L (12-78); Albumin, Blood 3.5 g/dL (3.4-5.0); Albumin/Globulin Ratio 1.2 (0.8-1.8); Alk Phos 80 U/L (50-136); Anion Gap 8 mmol/L (6-16); Aspartate Aminotrans (AST/SGOT 24 U/L (12-37); Bilirubin, Total 0.4 mg/dL (0.1-1.0); Blood Urea Nitrogen 13 mg/dL (8-24); Bun/Creatinine Ratio 11.6 (12.0-20.0); CO2, Blood 24 mmol/L (21-32); Chloride, Blood 111 mmol/L (98-108); Creatinine, Blood 1.12 mg/dL (0.60-1.20); Glomerular Filtration Rate >60 (60-); Glucose, Blood 180 mg/dL (70-99); Potassium, Blood 3.4 mmol/L (3.5-5.5); Sodium, Blood 143 mmol/L (136-145); Total Protein, Blood 6.5 g/dL (6.4-8.2)
[2021-04-21 14:39] LABS: Influenza A, PCR NEGATIVE (NEGATIVE); Influenza B, PCR NEGATIVE (NEGATIVE); Resp Syncytial Virus, PCR NEGATIVE (NEGATIVE)
[2021-04-21 14:51] LABS: SARS-Cov-2 (COVID-19) PCR, MMC POSITIVE (NEGATIVE)
[2021-04-21] MEDS ORDERED: PRED20 PO (17:21)
[2021-04-21] MEDS ORDERED: AMOCLA875 PO (17:21)
== END 2021-04-21 18:41 | disposition home or self-care (01) ==
LOC: ER 13:07
PROVIDERS: Physician Assistant
DX: U07.1 COVID-19 (principal); J12.82 Pneumonia due to coronavirus disease 2019; J44.1 Chronic obstructive pulmonary disease with (acute) exacerbation; Z86.718 Personal history of other venous thrombosis and embolism; Z87.891 Personal history of nicotine dependence
CPT/HCPCS: 0241U; 36415; 71046; 80053; 83880; 84484; 85025; 93005; 93010; 96365; 96375; 99285-25; A9270; J2930; J3475; M0247

== ENCOUNTER 2023-09-29 09:06 | Emergency (ER) | payer MEDICARE, OTHER ==
[~2023-09-29] VITALS: Ht 175.3 cm; Wt 94.8 kg
[~2023-09-29 09:06] MED LIST changes: +ALBU2.5V5 NEB; +AMOCLA875 PO; +METPRE4DP PO
[2023-09-29 09:09] VITALS: BP 136/66
[2023-09-29] MEDS ORDERED: Ketorolac Tromethamine 30mg Vial IM ONE (09:40)
[2023-09-29] MEDS ORDERED: IBUP800 PO (11:02)
[2023-09-29] MEDS ORDERED: Robaxin750 MG PO (11:02)
== END 2023-09-29 11:05 | disposition home or self-care (01) ==
LOC: ER 09:06
DX: M54.50 Low back pain, unspecified (principal); J44.89 Other specified chronic obstructive pulmonary disease; Z87.891 Personal history of nicotine dependence; Z79.52 Long term (current) use of systemic steroids; Z79.899 Other long term (current) drug therapy; Z88.5 Allergy status to narcotic agent; Z88.8 Allergy status to other drugs, medicaments and biological substances
CPT/HCPCS: 72070; 72100; J1885